=== PATIENT | female | born 1955 | race Caucasian/White ===

== ENCOUNTER 2020-02-12 15:43 | Outpatient (CLI) | payer OTHER, SELFPAY ==
--- NOTE | ~2020-02-12 | XR_ITS ---
EXAMINATION: XR chest 2V EXAM DATE: 02/12/2020 16:00 INDICATION: Cough. Shortness of breath. TECHNIQUE: Frontal and lateral projections of the chest obtained and reviewed. There is no prior carlyle dy for comparison. FINDINGS: The lungs are clear. There are no pleural effusions. The cardiomediastinal silhouette is within normal limits. There is no pneumothorax suspected. The bones and soft tissues are unremarkab le. IMPRESSION: No acute cardiopulmonary findings. Reviewed, dictated and finalized at location A.
[2020-02-12 16:32] LABS: Hematocrit 38.6 % (37.0-47.0); Hemoglobin 12.5 g/dL (12.0-15.0); Mean Corpuscular HGB Conc 32.4 g/dl (32-36); Mean Corpuscular Hemoglobin 31.3 pg (26-34); Mean Corpuscular Volume 96.5 fl (80-100); Mean Platelet Volume 9.8 fl (7.4-10.4); Platelet Count Result 362 k/mm3 (150-375); Red Cell Distribution Width 12.7 % (11.5-14.5); White Blood Count 7.3 K/mm3 (4.5-10.0)
[2020-02-12 16:44] LABS: Blood Urea Nitrogen 14 mg/dL (7-17); Carbon Dioxide 27 mmol/L (22-30); Chloride 100 mmol/L (98-107); Estimated Glomerular Filt Rate > 60; Glucose 96 mg/dL (65-105); Sodium 136 mmol/L (137-145)
== END 2020-02-12 15:44 | disposition home or self-care (01) ==
LOC: ANHIMG 15:45
PROVIDERS: PCP Family Medicine; Visit Provider Nurse Practitioner Family
DX: R05 Cough (principal); R06.02 Shortness of breath
CPT/HCPCS: 36415; 71046; 80048; 85027

== ENCOUNTER 2020-08-23 09:22 | Outpatient (CLI) | payer OTHER, SELFPAY ==
--- NOTE | ~2020-08-23 | MM_ITS ---
EXAMINATION: MM screening [facility] BI w bebeto HISTORY: Screening TECHNIQUE: Craniocaudal and mediolateral oblique 3-D tomosynthesis images were obtained and synthetic 2-D images were generated. CAD analysis was submitted and interpreted. COMPARISON: Comparison to multiple prior studies sequentially, with oldest reviewed study dated 07/2014. BREAST PARENCHYMAL COMPOSITION: Breast composed of scattered areas of fibroglandular density. FINDINGS: There is no evidence of suspicious mass, calcification, or architectural distortion to sugg est malignancy in either breast. There has been no suspicious interval change. IMPRESSION: 1. No mammographic evidence of malignancy. 2. Recommend routine screening mammography in one year. BI-RADS Category 1: Negative Reviewed, dictated and finalized at location A. ACE FILLER
== END 2020-08-23 09:23 | disposition home or self-care (01) ==
LOC: ANHIMG 09:27
PROVIDERS: PCP Family Medicine; Visit Provider Obstetrics & Gynecology
DX: Z12.31 Encounter for screening mammogram for malignant neoplasm of breast (principal)
CPT/HCPCS: 77063; 77067

== ENCOUNTER 2021-07-26 11:58 | Emergency (ER) | payer OTHER, SELFPAY ==
[2021-07-26 12:12] VITALS: BP 120/59; PULSE 62; RESP 20; TEMP 36.4; O2SAT 100
== END 2021-07-26 15:00 | disposition left against medical advice (07) ==
LOC: ANHED 15:17
PROVIDERS: PCP Family Medicine
DX: R55 Syncope and collapse (principal)
CPT/HCPCS: 99199

== ENCOUNTER 2021-08-30 10:18 | Outpatient (CLI) | payer OTHER, SELFPAY ==
--- NOTE | ~2021-08-30 | MM_ITS ---
EXAMINATION: MM screening [facility] BI w bebeto HISTORY: Screening mammogram TECHNIQUE: Craniocaudal and mediolateral oblique 3-D tomosynthesis images were obtained and synthetic 2-D images were generated. CAD analysis was submitted and interpreted. COMPARISON: August 23, 2020 bilateral screening mammogram 08/04/2019 diagnostic left mammogram and limited left breast ultrasound 07/22/2019, 06/27/2018 bilateral screening mammogram examinations BREAST PARENCHYMAL COMPOSITION: There are scattered areas of fibroglandular density. FINDINGS: There is no evidence of suspicious mass, calcification, or architectural distortion to sugg est malignancy in either breast. There has been no suspicious interval change. IMPRESSION: 1. No mammographic evidence of malignancy. 2. Recommend routine screening mammography in one year. BI-RADS Category 1: Negative Reviewed, dictated and finalized at location A. WAXER
== END 2021-08-30 10:19 | disposition home or self-care (01) ==
LOC: ANHIMG 10:21
PROVIDERS: PCP Family Medicine; Visit Provider Obstetrics & Gynecology
DX: Z12.31 Encounter for screening mammogram for malignant neoplasm of breast (principal)
CPT/HCPCS: 77063; 77067

== ENCOUNTER 2022-05-25 11:29 | Outpatient (CLI) | payer MEDICARE, SELFPAY ==
--- NOTE | ~2022-05-25 | US_ITS ---
EXAMINATION: US carotid duplex BI DATE: 05/25/2022 12:43 INDICATION: Syncope. Cough. TECHNIQUE: Grayscale, color Doppler, and pulsed Doppler images of the cervical carotid arteries were obtained. The degree of vessel stenosis is placed in one of the following categories: normal, <50%, 5 0-69%, >=70% but less than near-occlusion, near-occlusion, or total occlusion. Note that percent sten osis relative to normal distal artery lumen diameter is indirectly measured from velocity measurement s as described by Robson, et al. Radiology 2003; 229:340-346. Notes: Normal: Peak systolic velocity <125 centimeters/sec and no plaque <50%. Peak systolic velocity <125 ( EDV <40; ICA/CCA PSV ratio <2.0; used these factors only a tandem lesions or low cardiac output or co ntralateral disease) 50-69 %: PSV 125-230 (EDV 40-100; ratio 2-4) >= 70% but less than near occlusion: PSV greater than 230 (EDV > 100; ratio> 4.0) Near Occlusion: PSV that is variable; markedly narrowed lumen Occlusion: Absent flow on color/spectral Doppler and no lumen on cho scale. COMPARISON: Ultrasound dated 03/06/2008 FINDINGS: RIGHT: The right common carotid artery (CCA) peak systolic velocity (PSV) is 79 cm/s. The right internal car otid artery (ICA) PSV is 72 cm/s. The right ICA end-diastolic velocity (EDV) is 33 cm/s. The right IC A/CCA PSV ratio is 0.9. The external carotid artery (ECA) PSV is 81 cm/s. There is antegrade flow in the right vertebral artery. LEFT: The left CCA PSV is 106 cm/s. The left ICA PSV is 72 cm/s. The left ICA EDV is 26 cm/s. The left ICA/ CCA PSV ratio is 0.7. The ECA PSV is 46 cm/s. There is antegrade flow in the left vertebral artery. IMPRESSION: 1. Less than 50% stenosis in the right internal carotid artery by sonographic criteria. 2. Less than 50% stenosis in the left internal carotid artery by sonographic criteria. Reviewed, dictated and finalized at location A. ILLER IMPRESSION: 1. Less than 50% stenosis in the right internal carotid artery by sonographic c selena. 2. Less than 50% stenosis in the left internal carotid artery by sonographic cr joaquin.
--- NOTE | ~2022-05-25 | XR_ITS ---
EXAMINATION: XR chest 2V 05/25/2022 12:10 INDICATION: Syncope. Collapse. PROCEDURE: 2 view chest COMPARISON: 02/12/2020 and 03/11/2014 FINDINGS: The lungs are clear. The cardiomediastinal silhouette is within normal limits. There are no pleural effusions. There is no pneumothorax suspected. No acute osseous abnormality. Scoliosis. IMPRESSION: 1: NO ACUTE CARDIOPULMONARY DISEASE. Reviewed, dictated and finalized at location A. RPRETIVE PROGRAM COORDINATOR
--- NOTE | 2022-05-25 13:53 | ECG_ITS ---
Measurements Intervals [place] Rate: 60 P: 70 UT: 175 QRS: 69 QRSD: 87 T: 5 QT: 377 QTc: 380 Interpretive Statements SINUS RHYTHM CANNOT RULE OUT SEPTAL INFARCT, AGE INDETERMINATE BORDERLINE ST-T WAVE ABNORMALITY- ANT/INF LEADS BASELINE ARTIFACT- I, II, III ABNORMAL ECG NO PREVIOUS ECG AVAILABLE FOR COMPARISON Electronically Signed On 05-25-2022 14:31:53 X RAY EQUIPMENT TESTER by Elian Tobias D.O.
[2022-05-25 14:02] LABS: Hemoglobin 12.5 g/dL (12.0-15.0); Mean Corpuscular HGB Conc 32.1 g/dl (32-36); Mean Corpuscular Hemoglobin 31.9 pg (26-34); Mean Corpuscular Volume 99.5 fl (80-100); Mean Platelet Volume 9.5 fl (7.4-10.4); Platelet Count Result 357 k/mm3 (150-375); Red Blood Count 3.92 M/mm3 (4.2-5.4); Red Cell Distribution Width 12.1 % (11.5-14.5)
[2022-05-25 14:17] LABS: Rheumatoid Factor < 8.6 IU/ML (<12)
[2022-05-25 14:19] LABS: Alanine Aminotransferase 19 U/L (6-35); Albumin Level 4.8 g/dL (3.5-5.1); Alkaline Phosphatase 66 U/L (38-126); Anion Gap 9 mmol/L (8-16); Aspartate Amino Transferase 28 U/L (14-36); Bilirubin,Total 0.6 mg/dL (0.2-1.3); Blood Urea Nitrogen 9 mg/dL (7-17); CRP < 0.5 mg/dL (<1.0); Calcium 9.4 mg/dL (8.4-10.2); Carbon Dioxide 25 mmol/L (22-30); Chloride 98 mmol/L (98-107); Estimated Glomerular Filt Rate > 60; Glucose 88 mg/dL (65-110); Sodium 132 mmol/L (137-145)
[2022-05-25 14:51] LABS: Erythrocyte Sedimentation Rate 7 mm/hr (0-20)
== END 2022-05-25 11:30 | disposition home or self-care (01) ==
PROVIDERS: PCP Family Medicine; Visit Provider Nurse Practitioner Family
DX: R55 Syncope and collapse (principal); I73.00 Raynaud's syndrome without gangrene; R05.9 Cough, unspecified; I65.23 Occlusion and stenosis of bilateral carotid arteries
CPT/HCPCS: 36415; 71046; 80053; 85027; 85652; 86038; 86140; 86430; 93005; 93880

== ENCOUNTER 2022-06-16 12:32 | Outpatient (CLI) | payer MEDICARE, SELFPAY ==
--- NOTE | 2022-06-16 12:48 | ECHO_ITS ---
Patient Info Name: Ana Larsen Age: 67 years : 1955 Gender: Female Ht: 61 in Wt: 140 lbs BSA: 1.67 m2 HR: 76 bpm BP: 126 / 74 mmHg Technical Quality: Good Exam Date: 06/16/2022 12:58 PM Exam Location: [facility] Patient Status: Outpatient Admit Date: 06/16/2022 Staff Ordering Physician: Mimi Camacho Furniture Rental Consultant: Simin Hudson RDCS Attending Provider: Mimi Camacho Referring Physician: Doug OCONNOR; Exam Type: CA echo doppler color flow Study Info Indications R94.31 - Abnormal electrocardiogram ECG EKG Complete two-dimensional, color flow and Doppler transthoracic echocardiogram is performed. Summary 1. Complete two-dimensional, color flow and Doppler transthoracic echocardiogram is performed. 2. Left ventricular chamber dimension is normal. 3. Left ventricular systolic function is normal, estimated at 65-70%. 4. The left ventricular diastolic function is grade I diastolic dysfunction. 5. E/e' 7 is not elevated. 6. Global longitudinal strain is normal at -18.9%. 7. No pulmonary hypertension, estimated pulmonary arterial systolic pressure is 28 mmHg. Left Ventricle E/e' 7 is not elevated. Global longitudinal strain is normal at -18.9%. Left ventricular chamber dimension is normal. Left ventricular systolic function is normal, estimated at 65-70%. The left ventricular diastolic function is grade I diastolic dysfunction. Right Ventricle Right ventricular systolic function is normal and with normal TAPSE 1.9 cm. Right ventricular chamber dimension is normal. Left Atria Left atrial chamber dimension is normal. Right Atria Right atrial chamber dimension is normal. Aortic Valve The aortic valve is trileaflet. There is no aortic valve stenosis. There is no aortic valve regurgitation. Pulmonic Valve There is no pulmonic regurgitation. Mitral Valve There is no mitral valve stenosis. There is no mitral valve regurgitation. Tricuspid Valve There is no tricuspid valve regurgitation. No pulmonary hypertension, estimated pulmonary arterial systolic pressure is 28 mmHg. Pericardium/Pleural There is no pericardial effusion. Inferior Vena Cava Normal inferior vena cava with >50% collapse upon inspiration consistent with normal right atrial pressure, 5 mmHg. Aorta The aortic root size at the sinus of Valsalva is normal. Left Ventricular Outflow Tract Name Value Normal LVOT 2D LVOT Diameter 2.0 cm LVOT Doppler LVOT Peak Gradient 5 mmHg LVOT Mean Gradient 2 mmHg LVOT VTI 19 cm LVOT VTI/AV VTI Ratio 0.9 LVOT Stroke Volume 58 ml LVOT CO 4.5 l/min LVOT CI 2.7 l/min/m2 Pulmonic Valve Name Value Normal RVOT Doppler
== END 2022-06-16 12:33 | disposition home or self-care (01) ==
PROVIDERS: PCP Family Medicine; Visit Provider Nurse Practitioner Family
DX: R94.31 Abnormal electrocardiogram [ECG] [EKG] (principal)
CPT/HCPCS: 93306

== ENCOUNTER 2022-11-16 14:50 | Outpatient (CLI) | payer MEDICARE, SELFPAY ==
--- NOTE | ~2022-11-16 | MM_ITS ---
EXAMINATION: MM screening [facility] BI w bebeto HISTORY: Screening mammogram TECHNIQUE: Craniocaudal and mediolateral oblique 3-D tomosynthesis images were obtained and synthetic 2-D images were generated. CAD analysis was submitted and interpreted. COMPARISON: 08/30/2020, 08/23/2020, 08/04/2019, 07/22/2019 BREAST PARENCHYMAL COMPOSITION: There are scattered areas of fibroglandular density. FINDINGS: No suspicious mass, calcification, or architectural distortion are identified in either to ast to suggest malignancy. There has been no suspicious interval change. IMPRESSION: 1. No mammographic evidence of malignancy. 2. Recommend routine screening mammography in one year. BI-RADS Category 1: Negative Reviewed, dictated and finalized at location A.
== END 2022-11-16 14:51 | disposition home or self-care (01) ==
LOC: ANHIMG 14:52
PROVIDERS: PCP Family Medicine; Visit Provider Obstetrics & Gynecology
DX: Z12.31 Encounter for screening mammogram for malignant neoplasm of breast (principal)
CPT/HCPCS: 77063; 77067

== ENCOUNTER 2023-09-11 13:03 | Observation (INO) | payer MEDICARE, SELFPAY ==
[2023-09-11] VITALS (7 sets, daily range): BP systolic 101–121; BP diastolic 56–92; PULSE 65–99; RESP 15–18; O2SAT 97–100; BMI 26.8
--- NOTE | ~2023-09-11 | CT_ITS ---
EXAMINATION: CTA brain carotid DATE: 09/12/2023 18:52 INDICATION: Syncope. TECHNIQUE: Computed tomographic angiography (CTA) of the head was performed without and with 100 mL O mnipaque-350 intravenous contrast. CTA of the neck was performed with intravenous contrast. Automated exposure control and iterative reconstruction technique were employed. The dose-length product was 1 588.23 mGy-cm. Maximum intensity projection and volume rendered 3D-reconstructions were created by latasha technologist on a separate workstation. COMPARISON: Head CT 09/11/2023, brain MRI 09/12/2023 FINDINGS: HEAD CTA: There are scattered areas of low attenuation in the cerebral white matter, which is within normal limits for the patient's age. There is no intracranial hemorrhage, acute infarction, or abnorm al intracranial mass lesion. The ventricles are normal in size. There is mild mucosal thickening in t he paranasal sinuses. The mastoid air cells are normal. The orbits are normal. The vertebral arteries are codominant. There is no significant stenosis of basilar artery. There is a junctional infundibul um of the distal basilar artery. There is no significant stenosis of the posterior cerebral arteries. The posterior communicating arteries are normal. There is no significant stenosis of the intracrania l internal carotid arteries or anterior or middle cerebral arteries. Anterior communicating artery is normal. There is no aneurysm. NECK CTA: There is mild scarring at the lung apices. There are no pathologically enlarged lymph nodes . There is no significant stenosis of the vertebral arteries. There is plaque in the proximal interna l carotid arteries. There is 0% stenosis of the proximal right internal carotid artery relative to no rmal distal artery lumen diameter (NASCET criteria). There is 0% stenosis of the proximal left electrical engineering intern al carotid artery relative to normal distal artery lumen diameter. There is severe cervical spondylos is. IMPRESSION: 1. Normal aging brain. 2. No aneurysm or significant intracranial arterial stenosis. 3. 0% stenosis of the proximal internal carotid arteries relative to normal distal artery lumen diame ters (NASCET criteria). Reviewed, dictated and finalized at location E. MERCE MARKETING SPECIALIST IMPRESSION: 1. Normal aging brain. 2. No aneurysm or significant intracranial arterial stenosis. 3. 0% stenosis of the proximal internal carotid arteries relative to normal dis shena artery lumen diameters (NASCET criteria).
--- NOTE | ~2023-09-11 | XR_ITS ---
EXAMINATION: XR chest 1V DATE: 09/11/2023 16:29 INDICATION: Syncopal episode TECHNIQUE: frontal view of the chest was obtained. COMPARISON: Chest radiograph dated 05/25/2022 FINDINGS: The lungs remain clear with no focal airspace opacities, pulmonary edema, pleural effusion or pneumot horax. The cardiomediastinal silhouette is normal. Mild lower thoracic levocurvature. IMPRESSION: 1. No acute cardiopulmonary disease. Reviewed, dictated and finalized at location A. TING MATERIAL CARRIER
--- NOTE | ~2023-09-11 | CT_ITS ---
EXAMINATION: CT brain wo con DATE: 09/11/2023 16:25 INDICATION: recurrent syncope . TECHNIQUE: Computed tomography (CT) of the head was performed without intravenous contrast. The mA wa s adjusted according to patient size. Iterative reconstruction technique was employed. The dose-lengt h product was 605.33 mGy-cm. COMPARISON: MR brain 02/10/2008. FINDINGS: No acute intracranial hemorrhage or extra-axial fluid collection. No hydrocephalus, mass, or herniation. No acute ischemic infarct. Unremarkable dural venous sinus attenuation. No acute osseous abnormality. Mild left maxillary mucosal thickening, the remaining aerated spaces are clear. IMPRESSION: No acute intracranial process. Reviewed, dictated and finalized at location K. GRATION CONSULTANT
--- NOTE | ~2023-09-11 | MR_ITS ---
MRI of the brain Clinical History: Recurrent syncope Technique: Axial and sagittal T1-weighted images were acquired. These were followed by axial T2-weigh estefania, diffusion weighted, gradient, and FLAIR images. Following intravenous administration of 13 cc Mu ltiHance gadolinium, T1-weighted fat-sat imaging was performed in the axial and coronal planes. Findings: There is no acute infarct, intracranial hemorrhage, or mass lesion. There are mild chronic white matter changes in the periventricular white matter, most compatible mild chronic microvascular ischemic change. Ventricles and subarachnoid spaces are mildly dilated. Orbits are unremarkable. Paranasal sinuses and mastoid air cells are clear. Major intracranial flow voids appear intact. Sagittal midline structures are intact. No abnormal postcontrast enhancement identified. IMPRESSION: No acute infarct, intracranial hemorrhage, or mass lesion. Mild chronic microvascular ischemic changes. Reviewed, dictated and finalized at [facility]. RVISOR MECHANIC BOILERMAKING
--- NOTE | ~2023-09-11 | US_ITS ---
Procedure: Duplex Doppler examination of the bilateral carotids. Indication: Syncope Technique: Real time, color-flow and pulse wave Doppler examination of the bilateral carotids was performed. Findings: Slade scale ultrasonography of the right neck demonstrated no significant plaque. There was demonstrat ion of normal color-flow and Doppler waveforms within the right common, internal and external carotid arteries. The peak systolic velocities in the right common, internal and external carotid arteries w ere demonstrated to be 112 cm/sec, 200 cm/sec and 104 cm/sec respectively. The right ICA/CCA ratio wa s 2.0.The proximal right internal carotid artery demonstrates 0% stenosis relative to the normal dist al artery lumen diameter. Slade scale sonography of the left neck demonstrated no significant plaque. There was demonstration of normal color-flow and wave forms within the left common, internal and external carotid arteries. The peak systolic velocities in the left common, internal and external carotid arteries were demonstrate d to be 167cm/sec, 82 cm/sec and 53 cm/sec respectively. The left ICA/CCA ratio was 0.5. The proximal left internal carotid artery demonstrates 0% stenosis relative to the normal distal artery lumen jonn meter. There was antegrade flow demonstrated in the bilateral vertebral arteries. Impression: Elevated velocity in the right internal carotid artery suggests a moderate degree stenosis (50-69%), though no distinct plaque or stenosis is clearly identified. This velocities also significantly incre ased as compared to prior exam from 05/25/2022. Recommend CT angiogram to further evaluate for lumina l narrowing which is not readily evident on this exam. Antegrade flow in the bilateral vertebral arteries. Note: The methodology used is an indirect measurement validated against a direct method (such as the NASCET criteria) that compares diameters at the stenosis to the distal ICA. Reviewed, dictated and finalized at location M. ER OUT Impression: Elevated velocity in the right internal carotid artery suggests a moderate degr ee stenosis (50-69%), though no distinct plaque or stenosis is clearly identifi ed. This velocities also significantly increased as compared to prior exam from 05/25/2022. Recommend CT angiogram to further evaluate for luminal narrowing w hich is not readily evident on this exam. Antegrade flow in the bilateral vertebral arteries. Note: The methodology used is an indirect measurement validated against a direct meth od (such as the NASCET criteria) that compares diameters at the stenosis to the distal ICA.
--- NOTE | 2023-09-11 13:06 | ECG_ITS ---
Measurements Intervals [place] Rate: 56 P: 50 [place]: 188 QRS: 68 QRSD: 81 T: 18 QT: 397 QTc: 384 Interpretive Statements SINUS BRADYCARDIA INCOMPLETE RIGHT BUNDLE BRANCH BLOCK CONSIDER ANTERIOR INFARCT, AGE INDETERMINATE BORDERLINE ST-T WAVE ABNORMALITY- INFERIOR LEADS BASELINE ARTIFACT- AVR, AVL, AVF ABNORMAL ECG COMPARED TO ECG 05/25/2022 14:07:15 SINUS BRADYCARDIA NOW PRESENT Electronically Signed On 09-11-2023 13:29:40 QUALITY ASSURANCE MANAGER by Elian Tobias D.O.
[2023-09-11 14:55] LABS: Basophils Percent Auto 0.5 % (0.2-1.2); Eosinophils Absolute Auto 0.1 K/mm3 (0-0.3); Eosinophils Percent Auto 0.7 % (0-4.4); Hematocrit 40.4 % (37.0-47.0); Immature Granulocyte Absolute 0.02 K/mm3 (0.00-0.031); Immature Granulocyte Percent A 0.2 % (0-0.5); Lymphocytes Absolute Auto 1.51 K/mm3 (0.9-3.2); Lymphocytes Percent Auto 17.3 % (18.3-44.2); Mean Corpuscular HGB Conc 32.2 g/dl (32-36); Mean Corpuscular Hemoglobin 31.4 pg (26-34); Mean Corpuscular Volume 97.6 fl (80-100); Mean Platelet Volume 9.8 fl (7.4-10.4); Monocytes Absolute Auto 0.4 K/mm3 (0.1-0.6); Neutrophils Absolute Auto 6.7 K/mm3 (1.3-6.7); Neutrophils Percent Auto 76.3 % (45.5-73.1); Platelet Count Result 286 k/mm3 (150-375); Red Blood Count 4.14 M/mm3 (4.2-5.4); Red Cell Distribution Width 12.2 % (11.5-14.5); White Blood Count 8.7 K/mm3 (4.5-10.0)
[2023-09-11 15:05] LABS: Alanine Aminotransferase 24 U/L (6-35); Albumin Level 4.4 g/dL (3.5-5.1); Alkaline Phosphatase 76 U/L (38-126); Anion Gap 6 mmol/L (8-16); Aspartate Amino Transferase 45 U/L (14-36); Bilirubin,Total 0.5 mg/dL (0.2-1.3); Blood Urea Nitrogen 13 mg/dL (7-17); Calcium 9.8 mg/dL (8.4-10.2); Carbon Dioxide 23 mmol/L (22-30); Chloride 101 mmol/L (98-107); Estimated CRCL calculation 60 ml/min; Estimated Glomerular Filt Rate > 60; Glucose 96 mg/dL (65-110); Potassium 4.3 mmol/L (3.4-5.0); Sodium 130 mmol/L (137-145)
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
[2023-09-11] MEDS: SODIUM CHLORIDE 0.9% IV 1,000 ML 999 ML IV CONT (16:53)
[2023-09-11 17:01] LABS: Add Urine Microscopic? YES; Appearance Urine Clear (Clear); Bacteria Urine None Seen /hpf; Bilirubin Urine Negative (Negative); Blood Urine Trace (Negative); Color Urine Yellow (Yellow); Glucose Urine UA Negative (Negative); Ketones Urine Negative (Negative); Leukocyte Esterase Ur Negative LEU/UL (Negative); Nitrate Urine Negative (Negative); Non Pathogenic Casts 0-2; Protein Urine Negative (Negative); Specific Grav Ur 1.006 (1.001-1.035); Squamous Epithelial Cell Urine None seen /hpf (Few); Urobilinogen Urine 0.2 mg/dL (<2.0); WBC Urine 0-5 /hpf
[2023-09-11 17:05] LABS: Lactic Acid Reflex 1.3 mmol/L (0.7-2.0)
[2023-09-11 17:11] LABS: INR 0.9; Lipase 199 U/L (23-300); Magnesium 2.1 mg/dL (1.6-2.3)
[2023-09-11 17:12] LABS: Partial Thromboplastin Time 22.9 SECONDS (22.3-36.8)
[2023-09-11 17:22] LABS: Troponin I < 0.012 ng/mL (0.000-0.034)
[2023-09-11 19:04] LABS: Troponin I < 0.012 ng/mL (0.000-0.034)
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
[2023-09-11 21:53] LABS: Troponin I < 0.012 ng/mL (0.000-0.034)
--- NOTE | 2023-09-11 23:29 | ADMGEN ---
This patient, Ana Larsen, was admitted to Medical Room 341-01. Patient/family oriented to hospital policies and general routines including ID bracelet, bed and alarms, visiting hours, pain management, procedures, bathroom and other care routines, personal items, smoking policy, room service/diet, and visiting hours. Information on how to activate the Rapid Response Team has been discussed. Patient/Family are encouraged to report perceived risks to care and to ask questions if they do not understand what they are told or what they should do.
[2023-09-12] VITALS (10 sets, daily range): BP systolic 112–135; BP diastolic 42–62; PULSE 62–89; RESP 16–20; TEMP 36.5–36.9; O2SAT 95–100
--- NOTE | 2023-09-12 06:00 | ECHO_ITS ---
Patient Info Name: Ana Larsen Age: 68 years : 1955 Gender: Female Ht: 62 in Wt: 147 lbs BSA: 1.73 m2 HR: 69 bpm BP: 135 / 62 mmHg Heart Rhythm: Sinus Rhythm Technical Quality: Good Exam Date: 09/12/2023 10:45 AM Exam Location: Echo Lab Patient Status: Outpatient Admit Date: 09/11/2023 Staff Ordering Physician: Lala Quintero MD Marine Meteorologist: Morteza Woods RDCS Attending Provider: Wan Freitas MD Referring Physician: Inrgid NASH; Exam Type: CA echo doppler color flow Study Info Indications - recuurent syncope Complete two-dimensional, color flow and Doppler transthoracic echocardiogram is performed. Summary 1. Complete two-dimensional, color flow and Doppler transthoracic echocardiogram is performed. 2. Left ventricular chamber dimension is normal. 3. Left ventricular systolic function is normal, estimated at 65-70%. 4. There is no increased left ventricular wall thickness. 5. The left ventricular diastolic function is normal. 6. Left atrial chamber dimension is mildly enlarged. 7. There is mild mitral valve regurgitation. 8. There is mild tricuspid valve regurgitation. Left Ventricle Left ventricular chamber dimension is normal. Left ventricular systolic function is normal, estimated at 65-70%. There is no increased left ventricular wall thickness. The left ventricular diastolic function is normal. Right Ventricle Right ventricular chamber dimension is normal. Right ventricular systolic function is normal. Left Atria Left atrial chamber dimension is mildly enlarged. Right Atria Right atrial chamber dimension is normal. Atrial Septum Intact interatrial septum visualized by color flow imaging. Aortic Valve The aortic valve is trileaflet. There is mild aortic valve sclerosis. There is no aortic valve stenosis. There is trace aortic valve regurgitation. Pulmonic Valve The pulmonic valve is normal. There is no pulmonic valve stenosis. There is trace pulmonic regurgitation. Mitral Valve The mitral valve has normal leaflets. There is no mitral valve stenosis. There is mild mitral valve regurgitation. Tricuspid Valve The tricuspid valve leaflets are normal. There is no significant tricuspid valve stenosis. There is mild tricuspid valve regurgitation. No pulmonary hypertension, estimated pulmonary arterial systolic pressure is 22 mmHg. Pericardium/Pleural The pericardium appears normal. There is no pericardial effusion. Inferior Vena Cava Normal inferior vena cava with >50% collapse upon inspiration consistent with normal right atrial pressure, 10 mmHg. Aorta The aortic root size at the sinus of Valsalva is normal. Left Ventricular Outflow Tract Name Value Normal LVOT 2D LVOT Diameter 1.9 cm LVOT Doppler LVOT Peak Gradient 4 mmHg LVOT Mean Gradient 2 mmHg LVOT VTI 24 cm LVOT VTI/AV VTI Ratio 0.9 LVOT Stroke Volume 65 ml LVOT CO 3.6 l/min LVOT CI 2.1 l/min/m2 Mitral Valve
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
[2023-09-12 10:00] LABS: Hemoglobin 12.9 g/dL (12.0-15.0); Mean Corpuscular HGB Conc 31.5 g/dl (32-36); Mean Corpuscular Hemoglobin 31.2 pg (26-34); Mean Platelet Volume 9.8 fl (7.4-10.4); Platelet Count Result 318 k/mm3 (150-375); Red Blood Count 4.14 M/mm3 (4.2-5.4); Red Cell Distribution Width 12.6 % (11.5-14.5); White Blood Count 4.9 K/mm3 (4.5-10.0)
[2023-09-12 10:38] LABS: Alanine Aminotransferase 25 U/L (6-35); Albumin Level 4.6 g/dL (3.5-5.1); Alkaline Phosphatase 65 U/L (38-126); Anion Gap 11 mmol/L (8-16); Aspartate Amino Transferase 45 U/L (14-36); Bilirubin,Total 0.4 mg/dL (0.2-1.3); Blood Urea Nitrogen 10 mg/dL (7-17); Calcium 9.7 mg/dL (8.4-10.2); Carbon Dioxide 22 mmol/L (22-30); Chloride 102 mmol/L (98-107); Estimated CRCL calculation 61 ml/min; Estimated Glomerular Filt Rate > 60; Glucose 94 mg/dL (65-110); Sodium 135 mmol/L (137-145)
[2023-09-12] MEDS: ACETAMINOPHEN 325 MG TABLET 650 MG PO (12:47)
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
[2023-09-13] VITALS (7 sets, daily range): BP systolic 101–105; BP diastolic 49–79; PULSE 60–80; RESP 16; TEMP 36.7–37; O2SAT 96–98
[2023-09-13 06:11] LABS: Hematocrit 41.2 % (37.0-47.0); Hemoglobin 13.1 g/dL (12.0-15.0); Mean Corpuscular HGB Conc 31.8 g/dl (32-36); Mean Corpuscular Hemoglobin 30.9 pg (26-34); Mean Corpuscular Volume 97.2 fl (80-100); Mean Platelet Volume 9.8 fl (7.4-10.4); Platelet Count Result 316 k/mm3 (150-375); Red Blood Count 4.24 M/mm3 (4.2-5.4); Red Cell Distribution Width 12.5 % (11.5-14.5); White Blood Count 6.1 K/mm3 (4.5-10.0)
[2023-09-13 06:21] LABS: Alanine Aminotransferase 24 U/L (6-35); Albumin Level 4.2 g/dL (3.5-5.1); Alkaline Phosphatase 68 U/L (38-126); Anion Gap 4 mmol/L (8-16); Aspartate Amino Transferase 42 U/L (14-36); Bilirubin,Total 0.3 mg/dL (0.2-1.3); Blood Urea Nitrogen 14 mg/dL (7-17); Calcium 9.5 mg/dL (8.4-10.2); Carbon Dioxide 26 mmol/L (22-30); Chloride 106 mmol/L (98-107); Estimated CRCL calculation 61 ml/min; Estimated Glomerular Filt Rate > 60; Glucose 88 mg/dL (65-110); Sodium 136 mmol/L (137-145)
--- NOTE | 2023-09-13 08:22 | PM.IMPN ---
Progress Note: A&P Assessment and Plan (1) Syncopal episodes: Code(s): R55 - Syncope and collapse Status: Acute Assessment and Plan: lifetime history of 5 syncopal episode cannot correlate syncopal episodes to any event, symptoms, activity patient denies any known seizure history. CT brain No acute intracranial process, chest x-ray noted no acute cardiopulmonary disease. carotid Dopplers noted Elevated velocity in the right internal carotid artery suggests a moderate degree stenosis (50-69%), though no distinct plaque or stenosis is clearly identified. This velocities also significantly increased as compared to prior exam from 05/25/2022. Recommend CT angiogram to further evaluate for luminal narrowing which is not readily evident on this exam. neurology consulted from ED MRI Brain today notes No acute infarct, intracranial hemorrhage, or mass lesion. Mild chronic microvascular ischemic changes. echo today notes Left ventricular systolic function is normal, estimated at 65-70%.The left ventricular diastolic function is normal. neurologist suggest EEG, CTA (2) Low sodium levels: Code(s): E87.1 - Hypo-osmolality and hyponatremia Status: Acute Assessment and Plan: sodium level on admission 130 today 135 continue to monitor (3) Tobacco abuse: Code(s): Z72.0 - Tobacco use Status: Acute Assessment and Plan: patient is a former smoker (4) Headache: Code(s): R51.9 - Headache, unspecified Status: Acute Assessment and Plan: patient admits to headache today Tylenol on p.r.n. Subjective Date/time seen: 09/13/23 08:22 Review of Systems Review of Systems: All systems reviewed & are unremarkable except as noted in HPI and below Exam Narrative: GENERAL: Well-appearing, in no acute distress, pleasant cooperative HEAD: Normocephalic, atraumatic. EYES: PERRLA and EOMI. ENT: Mucous membranes moist. NECK: Supple. FROM CHEST: Clear to auscultation. No respiratory distress. HEART: Regular rate and rhythm. ABDOMEN: Soft, nontender, nondistended EXTREMITIES: Normal range of motion. No edema. SKIN: Warm, dry, no rash. NEURO: No focal deficits. Alert and oriented x3. PSYCH: Normal mood and affect. Objective Data Vital Signs Vital Signs: Vital Signs - 24 hr 09/12/23 14:00 09/12/23 12:00 09/12/23 16:00 Temperature 97.7 F Pulse Rate 76 76 79 Respiratory Rate 16 Blood Pressure 123/48 L Pulse Oximetry 99 Oxygen Delivery 09/12/23 20:58 09/12/23 20:00 09/12/23 20:00 Temperature 98.4 F Pulse Rate 62 73 Respiratory Rate 18 Blood Pressure 113/58 L Pulse Oximetry 100 Oxygen Delivery Room Air 09/13/23 00:00 09/13/23 04:00 09/13/23 05:55 Temperature 98.1 F Pulse Rate 69 61 63 Respiratory Rate 16 Blood Pressure 105/79 Pulse Oximetry 96 Oxygen Delivery Intake/Output Intake/Output: Intake & Output 09/10/23 09/11/23 09/12/23 09/13/23 23:59 23:59 23:59 23:59 Intake Total 1000 3020 300 Balance 1000 3020 300 Meds/Results Medications: Active Medications Generic Name Dose Route Start Last Admin Trade Name Freq PRN Reason Stop Dose Admin Acetaminophen 650 mg 09/12/23 12:15 09/12/23 12:47 Acetaminophen 325 Mg Tablet PO 650 mg Q6H PRN Administration Mild Pain (1-3) or Fever Perflutren Lipid Microsphere 0 ml 09/11/23 20:49 Perflutren Lipid Microspheres 1.5 Ml Vial Diluted To 10 Ml Total Volume IV PUSH 09/14/23 20:50 ONCE PRN adequate visualization Protocol Radiology Results: ITS Impressions Head CT 09/11/23 16:30 IMPRESSION: No acute intracranial process. Chest X-Ray 09/11/23 16:33 IMPRESSION: 1. No acute cardiopulmonary disease. Carotid Doppler Study 09/12/23 06:22 Impression: Elevated velocity in the right internal carotid artery suggests a moderate degree stenosis (50-69%), though no d
--- NOTE | 2023-09-13 17:33 | WPDNEUROLOGY ---
Neurology EEG Report TEST Electroencephalogram DIAGNOSIS syncope and collapse CONDITION OF RECORDING Fair CLINICAL HISTORY history of syncopal episode on several occasions over the past 8 years. The patient become dizzy and nauseous before passing out. EEG DESCRIPTION During wakefulness the background activity consists of posterior dominant alpha rhythm at 9 hertz with an amplitude of 25-50 microvolts which appears well-formed and reactive to eye opening. Anteriorly low amplitude mixed frequency activity was seen. Hyperventilation or photic stimulation were not performed. Patient progressed to stage I and 2 sleep during which vertex waves sleep spindles and K complexes are seen. IMPRESSION This is a normal EEG obtained during awake and sleep states.
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
== END 2023-09-13 19:50 | disposition home or self-care (01) ==
LOC: ANHED 14:05 → ANH3MED 23:06
PROVIDERS: Nurse Practitioner Family; Admitting Provider Internal Medicine; Emergency Provider Emergency Medicine; PCP Family Medicine; Visit Provider Internal Medicine
DX: R55 Syncope and collapse (principal); E87.1 Hypo-osmolality and hyponatremia; R51.9 Headache, unspecified; R94.31 Abnormal electrocardiogram [ECG] [EKG]; I08.1 Rheumatic disorders of both mitral and tricuspid valves; M26.622 Arthralgia of left temporomandibular joint; Z79.82 Long term (current) use of aspirin; Z79.899 Other long term (current) drug therapy; F17.290 Nicotine dependence, other tobacco product, uncomplicated; Z82.49 Family history of ischemic heart disease and other diseases of the circulatory system
CPT/HCPCS: 36415; 70450; 70496; 70498; 70553; 71045; 80053; 81001; 83605; 83690; 83735; 84484; 85025; 85027; 85610; 85730; 93005; 93306; 93880; 95816; 99285; A9270; A9577; G0378; J7030; Q9967

== ENCOUNTER 2024-01-08 15:27 | Outpatient (CLI) | payer MEDICARE, SELFPAY ==
--- NOTE | ~2024-01-08 | MM_ITS ---
EXAMINATION: MM screening [facility] BI w bebeto HISTORY: Screening mammogram TECHNIQUE: Craniocaudal and mediolateral oblique 3-D tomosynthesis images were obtained and synthetic 2-D images were generated. CAD analysis was submitted and interpreted. COMPARISON: 11/16/2022, 08/30/2021, 08/23/2020 BREAST PARENCHYMAL COMPOSITION:Not Dense. There are scattered areas of fibroglandular density. FINDINGS: No suspicious mass, calcification, or architectural distortion are identified in either to ast to suggest malignancy. There has been no suspicious interval change. IMPRESSION: No mammographic evidence of malignancy. Recommend routine screening mammography in one year. BI-RADS Category 1: Negative Reviewed, dictated and finalized at location .
== END 2024-01-08 15:28 | disposition home or self-care (01) ==
LOC: ANHIMG 15:29
PROVIDERS: PCP Family Medicine; Visit Provider Obstetrics & Gynecology
DX: Z12.31 Encounter for screening mammogram for malignant neoplasm of breast (principal)
CPT/HCPCS: 77063; 77067

== ENCOUNTER 2024-04-09 01:07 | Day surgery (SDC) | payer MEDICARE, SELFPAY ==
[2024-04-08 15:57] VITALS: BMI 26.2
[2024-04-09 09:24] VITALS: BP 115/58; PULSE 61; RESP 18; TEMP 37; O2SAT 99
--- NOTE | 2024-04-09 10:12 | SUR.PREOP ---
Adan from [employer] here to bedside to speak w/ pt. about Loop Recorder.
--- NOTE | 2024-04-09 11:02 | WPDCARDPROC ---
Cardiac Cath Procedure Note Date of procedure:: 04/09/24 Performing physician:: Alex Joesph MD Indication:: Unexplained syncope Brief clinical history:: This is a 69-year-old patient with several syncopal episodes which have been unexplained. Outpatient Holter monitoring has been unrevealing. For further evaluation of this a implantable loop recorder has been recommended by 2 other cardiologists. [place] of [place]. Procedure Procedure performed:: Implantation of [employer] LINQ 2 loop recorder Sedation/Medication given:: No sedation Access site:: Left anterior chest wall Estimated blood loss:: Minimal Procedure note:: Patient was taken to the cath lab manager holding area in the postabsorptive state. A kavin was made in the 4th intercostal space in the midclavicular line. This area was then cleansed and draped in sterile fashion. 20 cc of 1% lidocaine was infiltrated at the site of the a.m. implant of the loop recorder. The implant kit was opened and the insertion blade was used to create a puncture stab wound at the site of the implant. The LINQ insertion tool was then advanced inferior to the puncture site in the subcutaneous tissue. The loop recorder was then deployed into the insertion pocket without any difficulty. There was some cutaneous oozing which is being controlled with direct manual pressure. The device was interrogated with the analyzer with excellent sensing performance. Findings:: Patient received a [employer] LINQ 2 LNQ22 loop recorder serial number [id number]. Conclusion:: Successful uncomplicated implantation of [employer] LINQ 2 loop recorder for evaluation of recurrent syncopal episodes in this 69-year-old woman Alex Joseph MD [facility]
[2024-04-09 11:35] VITALS: BP 121/61; PULSE 64; RESP 16; TEMP 36.9; O2SAT 100
== END 2024-04-09 11:45 | disposition home or self-care (01) ==
PROVIDERS: PCP Family Medicine; Visit Provider Specialist
PROC: (CPT 33285; principal; 2024-04-09 10:00)
DX: R55 Syncope and collapse (principal); Z87.891 Personal history of nicotine dependence; Z82.49 Family history of ischemic heart disease and other diseases of the circulatory system
CPT/HCPCS: 33285; C1764; J2003

== ENCOUNTER 2024-10-03 13:34 | Outpatient (CLI) | payer MEDICARE, SELFPAY ==
--- NOTE | ~2024-10-03 | US_ITS ---
EXAMINATION: US carotid duplex BI DATE: 10/03/2024 14:37 INDICATION: Carotid occlusion. Stenosis. TECHNIQUE: Grayscale, color Doppler, and pulsed Doppler images of the cervical carotid arteries were obtained. The degree of vessel stenosis is placed in one of the following categories: normal, <50%, 5 0-69%, >=70% but less than near-occlusion, near-occlusion, or total occlusion. Note that percent sten osis relative to normal distal artery lumen diameter is indirectly measured from velocity measurement s as described by Robson, et al. Radiology 2003; 229:340-346. Notes: Normal: Peak systolic velocity <125 centimeters/sec and no plaque <50%. Peak systolic velocity <125 ( EDV <40; ICA/CCA PSV ratio <2.0; used these factors only a tandem lesions or low cardiac output or co ntralateral disease) 50-69 %: PSV 125-230 (EDV 40-100; ratio 2-4) >= 70% but less than near occlusion: PSV greater than 230 (EDV > 100; ratio> 4.0) Near Occlusion: PSV that is variable; markedly narrowed lumen Occlusion: Absent flow on color/spectral Doppler and no lumen on cho scale. COMPARISON: None. FINDINGS: RIGHT: The right common carotid artery (CCA) peak systolic velocity (PSV) is 114 cm/s. The right internal ca rotid artery (ICA) PSV is 111 cm/s. The right ICA end-diastolic velocity (EDV) is 40 cm/s. The right ICA/CCA PSV ratio is 1.0. The external carotid artery (ECA) PSV is 102 cm/s. There is antegrade flow in the right vertebral artery. LEFT: The left CCA PSV is 81 cm/s. The left ICA PSV is 93 cm/s. The left ICA EDV is 33 cm/s. The left ICA/C CA PSV ratio is 1.2. The ECA PSV is 60 cm/s. There is antegrade flow in the left vertebral artery. IMPRESSION: 1. Less than 50% stenosis in the right internal carotid artery by sonographic criteria. 2. Less than 50% stenosis in the left internal carotid artery by sonographic criteria. Reviewed, dictated and finalized at location A. IMPRESSION: 1. Less than 50% stenosis in the right internal carotid artery by sonographic jean marie walters. 2. Less than 50% stenosis in the left internal carotid artery by sonographic johnny nuñez.
--- OUTSIDE RECORDS SUMMARY | 2024-10-03 13:46 | XMS_ITS | Clinical Summary ---
Author Organization [facility] [place] [address] Address [address] [place] [address] Care Team Providers Care Building Stonecutter Name Role Phone Noel Duffy MD Primary Care Provider [phone] Noel Duffy MD Unavailable [phone] Allergies Active Allergy Reactions Criticality Noted Date Comments Cashew Nut Stomach upset Low 01/11/2024 Egg Stomach upset Low 01/11/2024 Penicillins Penicillins Other (See comments) Low 01/11/2024 Nightmares Medications lacosamide (VIMPAT) 50 mg tablet 1 tablet (50 mg total) 3 (three) times a day 12/11/2023 Active rosuvastatin (CRESTOR) 10 mg tablet Take 1 tablet (10 mg total) by mouth daily Active Active Problems Problem Noted Date Diagnosed Date Status post placement of implantable loop record er 04/15/2024 Overview (04/15/2024): [employer] LINQII Loop Recorder. Dx; Syncope. DOI 04/09/2024-Fleissner. Chaney remote. Recurrent syncope 01/29/2024 Encounters Date Type Department Care Team Description 09/01/2024 7:45 AM PARKING LOT SPOTTER Ancillary Procedure [facility] Cardiology [address] [place] [phone] Status post placement of implantable loop recorder (Primary Dx); Recurrent syncope; Bradycardia 07/21/2024 7:15 AM PARKING LOT SPOTTER Ancillary Procedure [facility] Cardiology [address] [facility] [address] [place] [phone] Recurrent syncope; Bradycardia from Last 3 Months Family History Medical History Relation Name Comments Heart attack Brother Diabetes Father Heart attack Father Heart disease Father No Known Problems Mother Relation Name Status Comments Brother Father Mother Social History Tobacco Use Types Packs/Day Years Used Date Smoking Tobacco: Former Cigarettes S tarted: 1974 AUDIT-C Answer Date Recorded Q1: How often do you have a drink containing alcohol? Never 03/05/2024 Q2: How many drinks containi ng alcohol do you have on a typical day when you are drinking? Patient does not drink Q3: How often do you have si x or more drinks on one occasion? Never 03/05/2024 Personal Safety Answer Date Recorded Have you ever been in or are you currently in a harmful physical or emotional relationship or is someone making you feel afraid or unsafe? Denies 03/05/2024 Comments Unknown Sex and Gender Information Value Date Recorded Sex Assigned at Not on file Legal Sex Female 11:00 AM PARKING LOT SPOTTER Gender Identity Not on file Sexual Orientation Not on file Obstetrics History Last Filed Vital Signs Vital Sign Reading Time Taken Comments Blood Pressure 112/80 03/26/2024 10:42 AM CDT Pulse 84 03/26/2024 10:42 AM CDT Temperature 36.9 C (98.4 F) 03/05/2024 1:18 PM CDT Respiratory Rate 18 03/05/2024 4:25 PM CDT Oxygen Saturation 96% 03/26/2024 10:42 AM CDT Inhaled Oxygen Concentration - - Weight 64.4 kg (142 lb) 03/26/2024 10:42 AM CDT Height 156.2 cm (5' 1.5 ) 03/26/2024 10:42 AM CD T Body Mass Index 26.4 03/26/2024 10:42 AM CDT Plan of Treatment Health Maintenance Due Date Last Done Comments Breast Cancer Screening-Mammogram 1955 Colon Cancer Screening-Colonoscopy 1955 Depression Screening 1955 Hepatitis C Screening 1955 Osteoporosis Screening-Bone Density Scan 1955 DTaP/Tdap/Td Vaccine (1 - Tdap) 01/29/1968 Hepatitis B Screening 1975 Pneumococcal vaccine 65+ (1 of 1 - PCV) 2007 Zoster Vaccine (1 of 2) 2007 Well Visit 65+ 2022 Covid-19 Vaccine (5 - 2023-2 5 season) 2024 08/13/2023, 07/21/2021, 09/25/2020, Additional history exists Influenza Vaccine (#1) 2024 05/10/2023 Fall Risk Assessment 03/05/2025 03/05/2024 Procedures Procedure Name Priority Date/Time Associated Diagnosis Comments DEVICE CHECK - REMOTE Routine 09/01/2024 8:37 AM PARKING LOT SPOTTER Recurrent syncope Bradycardia DEVICE CHECK - REMOTE Routine 07/23/2024 8:16 AM PARKING LOT SPOTTER Recurrent syncope Bradycardia from Last 3 Months Results * DEVICE CHECK - REMOTE (09/01/2024 8:37 AM PARKING LOT SPOTTER) Anatomical Region Laterality Modality Other Narrative 09/12/2024 8:32 AM PARKING LOT SPOTTER [employer] LINQII Loop Recorder. Dx; Syncope. DOI 04/09/2024-Jake. [facility]link remote. Routine ILR remote. Normal device function. Battery function-good. Presenting rhythm: NSR Medications: No anticoagulation or cardiac meds Counters since last scheduled transmission on 07/21/24. No auto or patient recorded episodes noted. See scanned report. [facility] remote f/u 10/13/24. Robin Chanel RN us Alex Joseph MD [facility] PROC EDURES Final Result * DEVICE CHECK - REMOTE (07/23/2024 8:16 AM PARKING LOT SPOTTER) Anatomical Region Laterality Modality Other Narrative 08/18/2024 4:20 PM PARKING LOT SPOTTER [employer] REVEAL LinQ II implanted April 09, 2024 for syncope. Patient had a routine [facility]link remote transmission of their implantable loop recorder on July 21, 2024. Medications: None Interrogation of the patients device demonstrates that the Linq is functioning appropriately (0) Symptom events Auto Device detected events of, (0) Pause, (0) Bradycardia, (0) Tachy, (0) AT, (0) AF, Presenting Rhythm: Normal sinus rhythm at 75 bpm Battery: Good Plan: 1) Routine Remote with no new events. 2) Continue to monitor remotely. Kirk Stevenson Device Senior Process Analyst Alex Joseph MD [facility] PROC EDURES Final Result from Last 3 Months Insurance UHC MEDICARE ADVANTAGE U[employer] MEDICARE ADVANTAGE Care Teams Building Stonecutter Relationship Specialty Start Date End Date Noel Duffy MD [address] [place] [address] PCP - General Family Medicine 09/11/23 Noel Duffy MD [address] [place] [address] 09/11/23
--- OUTSIDE RECORDS SUMMARY | 2024-10-03 13:46 | XMS_ITS | Clinical Summary ---
Author Organization [facility] Address [facility] [place] [address] Care Team Providers Care Fork Truck Driver Name Role Phone Eryn Duffy MD Primary Care Provider [phone] Allergies Active Allergy Reactions Criticality Noted Date Comments Penicillins Other (see comment) 07/18/2024 nightmares Medications rosuvastatin (CRESTOR) 10 MG tablet 07/13/2024 Active aspirin EC (ECOTRIN) 81 MG tablet Take 1 tablet (81 mg total) by mouth daily. Active lacosamide (VIMPAT) 100 MG TabIndications:L ocalization-rela estefania focal epilepsy with complex partial seizures ([facility]) Take 1 tablet (100 mg total) by mouth every 12 (twelve) hours. 60 tablet 5 07/18/2024 Active Encounters Date Type Department Care Team Description 09/11/2024 [facility] [address], [address] [place] [address] Suzie Lugo MD Results 09/09/2024 11:38 AM TOOL MAKER - 09/09/2024 11:59 PM TOOL MAKER Hospital Encounter [facility] [place] [address] Suzie Lugo MD Discharge Disposition: Home or Self Care (Routine Discharge) 09/09/2024 Travel 07/18/2024 9:40 AM TOOL MAKER [facility] [address] [facility], [address] [place] [phone] Suzie Lugo MD New Patient (Epilepsy) 07/18/2024 Telephone [facility] - [address], [address] [place] [phone] Suzie Lugo MD Appointment Request 07/18/2024 Travel from Last 3 Months Social History Tobacco Use Types Packs/Day Years Used Date Smoking Tobacco: Never Passive Smoke Exposure: Never Smokeless Tobacco: Never Tobacco Cessation:Counseling Given: Yes Alcohol Use Standard Drinks/Week Comments Never 0 (1 standard drink = 0.6 oz pur e alcohol) PHQ-2 Answer Date Recorded Patient Health Questionnaire-2 Score 0 07/18/2024 Comments Unknown Sex and Gender Information Value Date Recorded Sex Assigned at Female 08/19/2024 10:58 AM TOOL MAKER Legal Sex Female 12:57 PM CDT Gender Identity Not on file Sexual Orientation Not on file Last Filed Vital Signs Vital Sign Reading Time Taken Comments Blood Pressure 120/77 07/18/2024 10:12 AM TOOL MAKER Pulse 85 07/18/2024 10:12 AM TOOL MAKER Temperature - - Respiratory Rate - - Oxygen Saturation 92% 07/18/2024 10:12 AM TOOL MAKER Inhaled Oxygen Concentration - - Weight 64.9 kg (143 lb) 07/18/2024 10:12 AM TOOL MAKER Height - - Body Mass Index - - Plan of Treatment Upcoming Encounters Date Type Department Care Team (Late st Contact Info) Description 01/19/2025 2:00 PM CDT Office Visit [facility] - [address], [address] [place] [phone] Suzie Lugo MD [address] [place] [phone] Health Maintenance Due Date Last Done Comments Colorectal Cancer Screening Colonoscopy (10 Years) 1957 Hepatitis C 1975 DTaP, Tdap and Td Vaccines (1 - Tdap) 01/29/1976 Mammogram Screening 1997 Zoster Vaccines (1 of 2) 2007 Annual Medicare Wellness Visit 2022 Dexa Scan (General) 2022 Pneumococcal Vaccine: 65+ Years (1 of 1 - PCV) 2022 COVID-19 Vaccine (5 - season) 2024 08/13/2023, 07/21/2021, 09/25/2020, Additional history exists RSV Immunization or 60+ Years (1 - 1-dose 75+ series) 01/29/2032 Influenza Adult Completed 04/23/2024, 05/10/2023 PHQ-2 (Physician [place]) Completed 07/18/2024 Meningococcal B Vaccine Aged Out No l onger eligible based on patient's age to complete this topic Meningococcal Vaccine Aged Out No jorge l janna eligible based on patient's age to complete this topic RSV Immunizations Under 20 Months Aged Out No longer eligible based on patient's age to complete this topic Procedures Procedure Name Priority Date/Time Associated Diagnosis Comments EEG SLEEP DEPRIVED Routine 09/09/2024 12 :00 PM TOOL MAKER 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 ([facility]) from Last 3 Months Results * EEG awake or drowsy routine (09/09/2024 12:00 PM TOOL MAKER) Narrative [facility] - 09/09/2024 12:00 PM TOOL MAKER Suzie Lugo MD 09/11/2024 12:24 PM Extended EEG Report Patient Name: Ana Larsen [facility] Medical Record Number (MRN): [id number] Date of (): 1955 EEG Date: 09/09/2024 CC: ERYN DUFFY MD Start Time: 1224 End Time: 1330 Introduction: Ana Larsen is a 69-year-old female with a history of LOC episodes, on lacosamide. EEG was performed to evaluate for seizures. This is a 22 channel EEG recording acquired on a [employer] EEG-1200 acquisition system. Scalp electrodes were placed according to the international 10-20 System. The analog EEG was filtered from 1-70 Hz and digitally sampled at 200 Hz. The record was then reformatted for review in bipolar and referential montages. EEG Description: The awake background included a 9 Hz posterior rhythm which attenuated with eye opening and activity. During drowsiness, identified by ocular signs and alpha attenuation, there was intermittent, diffuse, asynchronous theta activity admixed with 2-4 Hz polymorphic frontotemporal delta activity. As the record progressed, stage II sleep was identified by vertex waves, sleep spindles and K-complexes. Hyperventilation was not performed. Photic strobe stimulation elicited no abnormalities. There were no focal, lateralized or epileptiform abnormalities. Interpretation: This is a normal awake and stage I and II sleep extended EEG. A normal EEG does not exclude a diagnosis of epilepsy or seizures. SUZIE LUGO MD Suzie Lugo MD NEUROLOGY ORDERABLES Fin al Result [facility] [address] [place] [address], from Last 3 Months Insurance [facility] Care Teams Fork Truck Driver Relationship Specialty Start Date End Date Eryn Duffy MD [address] [address] PCP - General FAMILY PRACTICE 07/18/24
--- OUTSIDE RECORDS SUMMARY | 2024-10-03 13:46 | XMS_ITS | Referral Summary ---
Author Organization [facility] [place] [address] Address [address] [place] [address] Care Team Providers Care Customer Care Professional Name Role Phone Noel Duffy MD Primary Care Provider [phone] Noel Duffy MD Unavailable [phone] Encounters Date Type Department Care Team Description 09/01/2024 7:45 AM DELIVERY ARCHITECT Ancillary Procedure [facility] Cardiology [address] [place] [phone] Status post placement of implantable loop recorder (Primary Dx); Recurrent syncope; Bradycardia 07/21/2024 7:15 AM DELIVERY ARCHITECT Ancillary Procedure [facility] Cardiology [address] [place] [phone] Recurrent syncope; Bradycardia from Last 3 Months Allergies Active Allergy Reactions Criticality Noted Date [...] DOI 04/09/2024-Fleissner. Chaney remote. Recurrent syncope 01/29/2024 Social History Tobacco Use Types Packs/Day Years [...] on file Legal Sex Female 11:00 AM DELIVERY ARCHITECT Gender Identity Not on file Sexual Orientation [...] 03/26/2024 10:42 AM CDT Plan of Treatment Not on file Procedures Procedure Name Priority Date/Time Associated Diagnosis Comments DEVICE CHECK - REMOTE Routine 09/01/2024 8:37 AM DELIVERY ARCHITECT Recurrent syncope Bradycardia DEVICE CHECK - REMOTE Routine 07/23/2024 8:16 AM DELIVERY ARCHITECT Recurrent syncope Bradycardia from Last 3 Months Results * DEVICE CHECK - REMOTE (09/01/2024 8:37 AM DELIVERY ARCHITECT) Anatomical Region Laterality Modality Other Narrative 09/12/2024 8:32 AM DELIVERY ARCHITECT [employer] LINQII Loop Recorder. Dx; Syncope. DOI 04/09/2024-Jake. [facility]link remote. Routine ILR remote. Normal device function. Battery function-good. Presenting rhythm: NSR Medications: No anticoagulation or cardiac meds Counters since last scheduled transmission on 07/21/24. No auto or patient recorded episodes noted. See scanned report. [facility] remote f/u 10/13/24. Robin Chanel RN Alex Joseph MD [facility] PROC EDURES Final Result * DEVICE CHECK - REMOTE (07/23/2024 8:16 AM DELIVERY ARCHITECT) Anatomical Region Laterality Modality Other Narrative 08/18/2024 4:20 PM DELIVERY ARCHITECT [employer] REVEAL LinQ II implanted April 09, [...] Continue to monitor remotely. Kirk Stevenson Device Content Engineer Alex Joseph MD [facility] PROC EDURES Final Result from Last 3 Months Insurance [facility] MEDICARE ADVANTAGE [facility] Address: [address] [address] [place] [address] [facility] MEDIC[facility] ADVANTAGE [facility] Address: [address] [address] [place] [address] Care Teams Customer Care Professional Relationship Specialty Start Date End Date Noel Duffy MD [address] [place] [address] PCP - General Family Medicine 09/11/23 Noel Duffy MD [address] [place] [address] 09/11/23
== END 2024-10-03 13:35 | disposition home or self-care (01) ==
PROVIDERS: PCP Family Medicine; Visit Provider Internal Medicine Cardiovascular Disease
DX: I65.23 Occlusion and stenosis of bilateral carotid arteries (principal)
CPT/HCPCS: 93880

== ENCOUNTER 2025-01-27 15:03 | Outpatient (CLI) | payer MEDICARE, SELFPAY ==
--- NOTE | ~2025-01-27 | MM_ITS ---
EXAMINATION: MM screening philomena BI w bebeto HISTORY: Screening TECHNIQUE: Craniocaudal and mediolateral oblique 3-D tomosynthesis images were obtained and synthetic 2-D images were generated. CAD analysis was submitted and interpreted. COMPARISON: Comparison to multiple prior studies sequentially, with oldest reviewed study dated 07/22. BREAST PARENCHYMAL COMPOSITION: There are scattered areas of fibroglandular density. FINDINGS: There is no evidence of suspicious mass, calcification, or architectural distortion to sug gest malignancy in either breast. Radiopaque medical dir overlies and partially obscures the media l left breast. IMPRESSION: 1. No mammographic evidence of malignancy. 2. Recommend routine screening mammography in one year. BI-RADS Category 1: Negative Reviewed, dictated and finalized at location B.
--- OUTSIDE RECORDS SUMMARY | 2025-01-27 15:07 | XMS_ITS | Encounter Summary ---
Author Organization [facility] Healthcare Address [address] [place] [address] Care Team Providers Care Vitamin Manager Name Role Phone Noel Duffy MD Primary Care Provider [phone] Noel Duffy MD Unavailable [phone] Encounter Details Date Type Department Care Team (Late st Contact Info) Description 04/09/2024 Orders Only [facility] Information Management [address] [place] [id number] Scanning, Provider Social History Tobacco Use Types Packs/Day Years [...] on file Legal Sex Female 11:00 AM SOLAR ENGINEER Gender Identity Not on file Sexual Orientation Not on file documented as of this encounter Plan of Treatment Not on file documented as of this encounter Procedures Procedure Name Priority Date/Time Associated Diagnosis Comments CARDIOLOGY DOCUMENT SCAN 04/09/2024 documented in this encounter Results * Cardiology Document Scan (04/09/2024) Anatomical Region Laterality Modality Other us Provider Scanning CV CARDIAC SERVICES PROCEDURES Final Result documented in this encounter Visit Diagnoses Not on filedocumented in this encounter Care Teams Vitamin Manager Relationship Specialty Start Date End Date Noel Duffy MD [address] [place] [place] [address] PCP - General Family Medicine 09/11/23 Noel Duffy MD [address] [place] [address] 09/11/23 documented as of this encounter
--- OUTSIDE RECORDS SUMMARY | 2025-01-27 15:07 | XMS_ITS | Referral Summary ---
Author Organization [facility] [address] Address [address] [place] [address] Care Team Providers Care National Secretary Name Role Phone Noel Duffy MD Primary Care Provider [phone] Noel Duffy MD Unavailable [phone] Encounters Date Type Department Care Team Description 01/05/2025 8:00 AM CDT Ancillary Procedure [facility] Medical [facility] Cardiology [address] [place] [phone] Recurrent syncope; Bradycardia 11/24/2024 7:30 AM CDT Ancillary Procedure [facility] Cardiology [address] [place] [phone] Status post placement of implantable loop recorder (Primary Dx); Recurrent syncope; Bradycardia from Last 3 Months [...] LINQII Loop Recorder. Dx; Syncope. DOI 04/09/2024-Jake. Shiv remote. 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 MEDICARE ADVANTAGE [facility] MEDICARE ADVANTAGE Care Teams National Secretary Relationship Specialty Start Date End Date Noel Duffy MD [address] [place] [address] PCP - General Family Medicine 09/11/23 Noel Duffy MD [address] [place] [address] 09/11/23
--- OUTSIDE RECORDS SUMMARY | 2025-01-27 15:07 | XMS_ITS | Clinical Summary ---
Author Organization [facility] [address] Address [address] [place] [address] Care Team Providers Care Machine Fitter Name Role Phone Noel Duffy MD Primary Care Provider [phone] Noel Duffy MD Unavailable [phone] Allergies Active Allergy Reactions Criticality Noted Date [...] Description 01/05/2025 8:00 AM CDT Ancillary Procedure [facility] Cardiology [address] [place] [phone] Recurrent syncope; Bradycardia 11/24/2024 7:30 AM CDT Ancillary Procedure [facility] Cardiology [address] [facility] [address] [place] [phone] Status post placement of implantable loop [...] on file 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
--- OUTSIDE RECORDS SUMMARY | 2025-01-27 15:07 | XMS_ITS | Clinical Summary ---
Author Organization [facility] Address [facility] [place] [address] Care Team Providers Care In Flight Refueling System Repairer Name Role Phone Noel Duffy MD Primary Care Provider [phone] Allergies Active Allergy Reactions Criticality Noted Date Comments Penicillins Other (see comment) 07/18/2024 nightmares Medications rosuvastatin (CRESTOR) 10 MG tablet 5 Active aspirin EC (ECOTRIN) 81 MG tablet Take 1 tablet (81 mg total) by mouth daily. 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 (CMS/HCC HHS/HCC) TAKE 1 TABLET BY MOUTH EVERY 12 HOURS 60 tablet 5 025 Discontinued(Re order) Encounters Date Type Department Care Team Description 01/19/2025 2:00 PM CDT Office Visit [facility] - [address], [address] [place] [address] Suzie Madsen MD Follow Up 01/19/2025 Travel from Last 3 Months Social History Tobacco Use Types Packs/Day Years Used Date Smoking Tobacco: Never Passive Smoke Exposure: Never Smokeless Tobacco: Never Tobacco Cessation:Counseling Given: Yes Alcohol Use Standard Drinks/Week Comments Never 0 (1 standard drink = 0.6 oz pur e alcohol) PHQ-2 Answer Date Recorded Patient Health Questionnaire-2 Score 0 01/19/2025 Comments Unknown Sex and Gender Information Value Date Recorded Sex Assigned at Female 08/19/2024 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 Female 12:57 PM CDT Gender Identity Not on file Sexual Orientation Not on file Last Filed Vital Signs Vital Sign Reading Time Taken Comments Blood Pressure 119/66 01/19/2025 1:54 PM CDT Pulse 82 01/19/2025 1:54 PM CDT Temperature - - Respiratory Rate - - Oxygen Saturation 98% 01/19/2025 1:54 PM CDT Inhaled Oxygen Concentration - - Weight 65.8 kg (145 lb) 01/19/2025 1:54 PM CDT Height - - Body Mass Index - - Plan of Treatment Upcoming Encounters Date Type Department Care Team (Late st Contact Info) Description 01/21/2026 1:40 PM CDT Office Visit [facility] - [address], [address] [place] [phone] Suzie Madsen MD [address] [place] [address] Health Maintenance Due Date Last Done Comments Colorectal Cancer Screening Colonoscopy (10 Years) 1957 Hepatitis C 1975 DTaP, Tdap and Td Vaccines (1 - Tdap) 01/29/1976 Mammogram Screening 1997 Pneumococcal Vaccine: 50+ Years (1 of 1 - PCV) 2007 Zoster Vaccines (1 of 2) 2007 Annual Medicare Wellness Visit 2022 Dexa Scan (General) 2022 COVID-19 Vaccine ( season) 2024 08/13/2023, 07/21/2021, 09/25/2020, Additional history exists RSV Immunization or 60+ Years (1 - 1-dose 75+ series) 01/29/2032 PHQ-2 (Physician [place]) Completed 01/19/2025 Meningococcal B Vaccine Aged Out No l onger eligible based on patient's age to complete this topic Meningococcal Vaccine Aged Out No jorge l janna eligible based on patient's age to complete this topic RSV Immunizations Under 20 Months Aged Out No longer eligible based on patient's age to complete this topic Insurance [facility] Care Teams In Flight Refueling System Repairer Relationship Specialty Start Date End Date Noel Duffy MD [address] [address] PCP - General FAMILY PRACTICE 07/18/24
== END 2025-01-27 15:04 | disposition home or self-care (01) ==
LOC: ANHIMG 15:04
PROVIDERS: PCP Family Medicine; Visit Provider Obstetrics & Gynecology
DX: Z12.31 Encounter for screening mammogram for malignant neoplasm of breast (principal)
CPT/HCPCS: 77063; 77067